=== PATIENT | female | born 1995 | race Caucasian/White ===

== ENCOUNTER 2018-05-31 13:51 | Emergency (ER) | payer OTHER ==
--- NOTE | 2018-05-31 14:48 | EDPHY ---
H & P Stated Complaint: Heavy bleeding, clotting and dizziness since this AM. Took PlanB 1 week ago Time Seen by Provider: 05/31/18 14:48 HPI/ROS: HPI: This is a 22-year-old female who presents with Chief Complaint: Heavy bleeding, clotting and dizziness since this AM. Took PlanB 1 week ago Location: Quality: Heavy bleeding, clotting Duration: Since this morning Signs and Symptoms: no fever, no nausea, no vomiting, no hematemesis, no blood in stool, no abdominal bloating, no diarrhea, no back pain, no urinary symptoms , no vaginal discharge, no indigestion, no chest pain, no shortness of breath Timing: Acute Severity: Moderate Context: Patient's last menstrual period was May 17, 2018, presents with sudden onset this morning of heavy bleeding; changing tampon every 2-3 hours; with passage of large clots since this morning. She reports that she feels dizzy and lightheaded. She took Plan B exactly 1 week ago. Last sexual intercourse was Tuesday approximately 2 days ago. Denies any urinary symptoms. Does not take any blood thinners. Does not have an OBGYN. Modifying Factors: None Comment: ROS: A comprehensive 10 system review of systems is otherwise negative aside from elements mentioned in the history of present illness. MEDICAL/SURGICAL/SOCIAL HISTORY: Medical history: Depression Surgical history: Denies Social history: Nonsmoker. Family history noncontributory. CONSTITUTIONAL: Extremely well-appearing adult white female, awake and alert, no obvious distress HEENT: Atraumatic and normocephalic, PERRL, EOMI. Nares patent; no rhinorrhea; no nasal mucosal edema. Tympanic membranes clear. Oropharynx clear, no exudate and moist pink mucosa. Airway patent. No lymphadenopathy. No meningismus. Cardiovascular: Normal S1/S2, regular rate, regular rhythm, without murmur rub or gallop. PULMONARY/CHEST: Symmetrical and nontender. Clear to auscultation bilaterally. Good air movement. No accessory muscle usage. ABDOMEN: Soft, nondistended, nontender, no rebound, no guarding, no peritoneal signs, no masses or organomegaly. No CVAT. EXTREMITIES: 2/2 pulses, strength 5/5, no deformities, no clubbing, no cyanosis or edema. NEUROLOGICAL: no focal neuro deficits. GCS 15. SKIN: Warm and dry, no erythema. no rash. Good capillary refill. Source: Patient Exam Limitations: No limitations - Personal History LMP (Females 10-55): Now Current Tetanus Diphtheria and Acellular Pertussis (TDAP): No - Medical/Surgical History Hx Asthma: No Hx Chronic Respiratory Disease: No Hx Diabetes: No Hx Cardiac Disease: No Hx Renal Disease: No Hx Cirrhosis: No Hx Alcoholism: No Hx HIV/AIDS: No Hx Splenectomy or Spleen Trauma: No Other PMH: Depression. - Social History Smoking Status: Never smoked Constitutional: Initial Vital Signs Temperature (C) 36.6 C 05/31/18 14:00 Heart Rate 95 05/31/18 14:00 Respiratory Rate 18 05/31/18 14:00 Blood Pressure 112/72 05/31/18 14:00 O2 Sat (%) 99 05/31/18 14:00 O2 Delivery Mode Room Air Allergies/Adverse Reactions: Penicillins Allergy (Verified 05/31/18 14:02) Home Medications: Medication Instructions Recorded Lexapro 05/31/18 Medical Decision Making - Diagnostics Imaging Results: Imaging Impressions Pelvic/Renal Ultrasound 05/31/18 14:52 Impression: No evidence of pelvic mass with endometrium within normal limits. With persistent clinical concern, continued sonographic surveillance is recommended.. Josy Odell was notified of these findings by telephone at 4:07 PM on 05/31/2018 ED Course/Re-evaluation: Vital signs reviewed and stable upon arrival. IV access, laboratory studies, urinalysis, pelvic ultrasound ordered Given 1 L normal saline and IV Toradol 15 mg 1555: Labs reviewed. No signs of leukocytosis/anemia/platelet dysfunction/SHAJI/ electrolyte imbalance. Serum glucose 68 1600: Called by radiologist who reports pelvic ultrasound shows left simple cyst measuring 2.9 x 2.3 x 3.0 cm, no fibroids, no ovarian torsion, no ectopic , retroverted uterus, mild free fluid, no retained products of conception. Urinalysis negative. Referral to OBGYN This patient was seen under the supervision of my secondary supervising physician. I evaluated care for this patient independently. Differential Diagnosis: Differential diagnosis includes but is not limited to retained products of conception, incomplete , dysmenorrhea, menorrhagia, dysfunctional uterine bleeding. - Data Points Laboratory Results: Laboratory Results 05/31/18 14:55 05/31/18 14:55 05/31/18 05/31/18 05/31/18 15:50 14:55 14:55 WBC RBC Hgb Hct MCV MCH MCHC RDW Plt Count MPV Neut % (Auto) Lymph % (Auto) [place] % (Auto) Eos % (Auto) Baso % (Auto) Nucleat RBC Rel Count Absolute Neuts (auto) Absolute Lymphs (auto) Absolute Monos (auto) Absolute Eos (auto) Absolute Basos (auto) Absolute Nucleated RBC Immature Gran % Immature Gran # Sodium 137 mEq/L mEq/L (135-145) Potassium 3.8 mEq/L mEq/L (3.5-5.2) Chloride 104 mEq/L mEq/L (97-110) Carbon Dioxide 25 mEq/l mEq/l (22-31) Anion Gap 8 mEq/L mEq/L (6-14) BUN 14 mg/dL mg/dL (7-23) Creatinine 0.7 mg/dL mg/dL (0.6-1.0) Estimated GFR > 60 Glucose 68 mg/dL L mg/dL (70-100) Calcium 9.1 mg/dL mg/dL (8.5-10.4) Beta HCG, Qual NEGATIVE Urine Color YELLOW Urine Appearance CLEAR Urine pH 7.0 (5.0-7.5) Ur Specific [address] 1.016 (1.002-1.030) Urine Protein NEGATIVE (NEGATIVE) Urine Ketones NEGATIVE (NEGATIVE) Urine Blood NEGATIVE (NEGATIVE) Urine Nitrate NEGATIVE (NEGATIVE) Urine Bilirubin NEGATIVE (NEGATIVE) Urine Urobilinogen NEGATIVE EU EU (0.2-1.0) Ur Leukocyte Esterase NEGATIVE (NEGATIVE) Urine Glucose NEGATIVE (NEGATIVE) 05/31/18 14:55 WBC 7.01 10^3/uL 10^3/uL (3.80-9.50) RBC 4.67 10^6/uL 10^6/uL (4.18-5.33) Hgb 13.9 g/dL g/dL (12.6-16.3) Hct 42.8 % % (38.0-47.0) MCV 91.6 fL fL (81.5-99.8) MCH 29.8 pg pg (27.9-34.1) MCHC 32.5 g/dL g/dL (32.4-36.7) RDW 13.5 % % (11.5-15.2) Plt Count 381 10^3/uL 10^3/uL (150-400) MPV 9.4 fL fL (8.7-11.7) Neut % (Auto) 63.6 % % (39.3-74.2) Lymph % (Auto) 25.2 % % (15.0-45.0) [place] % (Auto) 8.8 % % (4.5-13.0) Eos % (Auto) 1.7 % % (0.6-7.6) Baso % (Auto) 0.6 % % (0.3-1.7) Nucleat RBC Rel Count 0.0 % % (0.0-0.2) Absolute Neuts (auto) 4.45 10^3/uL 10^3/uL (1.70-6.50) Absolute Lymphs (auto) 1.77 10^3/uL 10^3/uL (1.00-3.00) Absolute Monos (auto) 0.62 10^3/uL 10^3/uL (0.30-0.80) Absolute Eos (auto) 0.12 10^3/uL 10^3/uL (0.03-0.40) Absolute Basos (auto) 0.04 10^3/uL 10^3/uL (0.02-0.10) Absolute Nucleated RBC 0.00 10^3/uL 10^3/uL (0-0.01) Immature Gran % 0.1 % % (0.0-1.1) Immature Gran # 0.01 10^3/uL 10^3/uL (0.00-0.10) Sodium Potassium Chloride Carbon Dioxide Anion Gap BUN Creatinine Estimated GFR Glucose Calcium Beta HCG, Qual Urine Color Urine Appearance Urine pH Ur Specific [address] Urine Protein Urine Ketones Urine Blood Urine Nitrate Urine Bilirubin Urine Urobilinogen Ur Leukocyte Esterase Urine Glucose Medications Given: Discontinued Medications Sodium Chloride (Ns) 1,000 mls @ 0 mls/hr IV EDNOW ONE; Wide Open PRN Reason: Protocol Stop: 05/31/18 14:52 Last Admin: 05/31/18 16:12 Dose: Not Given Ketorolac Tromethamine (Toradol) 15 mg IVP EDNOW ONE Stop: 05/31/18 14:53 Last Admin: 03/20/19 16:11 Dose: Not Given Departure - Departure Disposition: Home, Routine, Self-Care Clinical Impression: Emergency contraception Heavy menses Qualifiers: Menorrahagia type: with regular cycle Qualified Code(s): N92.0 - Excessive and frequent menstruation with regular cycle Condition: Good Instructions: Dysfunctional Uterine Bleeding (ED) Additional Instructions: Rest as much as possible until you are feeling better. Consume a minimum of 8-10 glasses of water or electrolyte fluid replacement drinks that include Gatorade, Powerade, Pedialyte. Eat an iron rich diet. Establish care with OBGYN. Referrals: [facility] [Clinic] - As per Instructions Naheed Sher MD [Primary Care Provider] - As per Instructions Bronwyn Joshua MD [Medical Doctor] - As per Instructions
[2018-05-31] MEDS ORDERED: NS 1,000 ML IV ONE (14:51)
[2018-05-31] MEDS ORDERED: KETOROLAC 15 MG/1 ML SDV IVP ONE (14:52)
[2018-05-31 15:16] LABS: PLATELET COUNT 381 10^3/uL (150-400)
[2018-05-31 16:24] VITALS: BP 124/62
== END 2018-05-31 16:23 | disposition home or self-care (01) ==
DX: N92.0 Excessive and frequent menstruation with regular cycle (principal)